=== PATIENT | female | born 1980 | race American Indian/Alaskan Native ===

== ENCOUNTER 2017-03-04 05:40 | Inpatient (IN) | payer OTHER ==
[2017-03-04] MEDS ORDERED: ELECTROLYTE-148 SOLN 1,000 ML IV SCH (06:00)
[2017-03-04 06:52] VITALS: BMI 27.1
[2017-03-04 07:52] LABS: BASO % 0.5 % (0-2.0); HEMOGLOBIN 12.1 GM/dL (10.7-15.3); RBC 4.68 M/mm3 (3.60-5.2); WHITE BLOOD COUNT 9.1 K/mm3 (4.0-10.0)
[2017-03-04 07:54] LABS: EOS % 1.3 % (0-4.5); HEMATOCRIT 37.9 % (32.4-45.2); LYMPH % 20.1 % (8-40); MCH 25.9 pg (25.7-33.7); MEAN CELL VOLUME 81.1 fl (80-96); MEAN PLT VOLUME 9.9 fl (7.5-11.1); MONO % 5.2 % (3.8-10.2); NEUT % 72.9 % (42.8-82.8); PLATELET COUNT 250 K/MM3 (134-434)
[2017-03-04 08:04] LABS: INR 0.87 (0.82-1.09); PROTHROMBIN TIME (PATIENT) 9.8 SEC (9.98-11.88)
[2017-03-04] MEDS ORDERED: DEXTROSE 5%-LACTATED RINGERS 1,000 ML IV SCH (08:45)
[2017-03-04 08:46] LABS: ANION GAP 12 (8-16); BLOOD UREA NITROGEN 10 mg/dL (7-18); CALCIUM 8.6 mg/dL (8.5-10.1); CHLORIDE 104 mmol/L (98-107); CO2 20 mmol/L (21-32); CREATININE 0.5 mg/dL (0.55-1.02); GLUCOSE,RANDOM 81 mg/dL (74-106); SODIUM 136 mmol/L (136-145)
--- NOTE | 2017-03-04 08:48 | HP ---
Past Medical History - Admission Chief Complaint: Rupture of membrane History of Present Illness: 36 yo @ 38.5 weeks gestation, EDC 03/13/17 presents c/o rupture of membrane. She c/o mild contractions pain. Upon admission she was 4cm dilated. History Source: Patient Limitations to Obtaining History: No Limitations - Past Medical History ...: 2 ...Para: 0 ...Term: 0 ...: 0 ...Spon : 0 ...Induced : 1 ...Multiple Gestation: 0 ...LMP: 06/10/16 ...EDC by Sono: 03/13/17 - Past Surgical History Past Surgical History: Yes: None Hx Myomectomy: No Hx Transabdominal Cerclage: No - Smoking History Smoking history: Never smoked Have you smoked in the past 12 months: No - Alcohol/Substance Use Hx Alcohol Use: No History of Substance Use: reports: None - Social History Usual Living Arrangement: Yes: With Spouse History of Recent Travel: No Home Medications - Allergies Allergies/Adverse Reactions: Allergies Allergy/AdvReac Type Severity Reaction Status Date / Time No Known Drug Allergies Allergy Verified 03/04/17 06:28 - Home Medications Home Medications: Ambulatory Orders Vit/Iron Fum/Folic AC [ Tablet] 1 tab PO DAILY 03/04/17 Family Disease History - Family Disease History Family History: Unremarkable Review of Systems - Review of Systems Constitutional: reports: No Symptoms Eyes: reports: No Symptoms HENT: reports: No Symptoms Neck: reports: No Symptoms Cardiovascular: reports: No Symptoms Respiratory: reports: No Symptoms Gastrointestinal: reports: No Symptoms Genitourinary: reports: No Symptoms, Other (Leakage of amniotic fluid) Breasts: reports: No Symptoms Reported Musculoskeletal: reports: No Symptoms Integumentary: reports: No Symptoms Neurological: reports: No Symptoms Endocrine: reports: No Symptoms Hematology/Lymphatic: reports: No Symptoms Psychiatric: reports: No Symptoms Pain Intensity: 3 Physical Exam - Maternity Vital Signs: Vital Signs Temperature 97.7 F 03/04/17 08:00 Pulse Rate 74 03/04/17 08:00 Respiratory Rate 18 03/04/17 08:00 Blood Pressure 120/77 03/04/17 08:00 O2 Sat by Pulse Oximetry (%) Constitutional: Yes: Well Nourished Eyes: Yes: Conjunctiva Clear HENT: Yes: Atraumatic Neck: Yes: Supple Cardiovascular: Yes: Regular Rate and Rhythm Lungs: Clear to auscultation Breast(s): Yes: WNL - Abdominal Exam/OB Number of Fetuses: Single Presentation: Vertex - Vaginal Exam/OB Dilatation (cm): 4 Effacement (%): 80 Amniotic Membrane Status: Ruptured Amniotic Fluid: Yes: Clear Meconium: Light Station: -2 - Physical Exam Musculoskeletal: Yes: WNL Extremities: Yes: WNL ...Motor Strength: WNL Psychiatric: Yes: Alert, Oriented - Labs Lab Results: CBC, BMP 03/04/17 06:50 Problem List - Problems (1) Spontaneous rupture of membranes Code(s): [id number] - Assessment/Plan IUP @ 38 weeks SROM Admit to L&D Analgesia as needed Pitocin augmentation
[2017-03-04] MEDS ORDERED: OXYTOCIN 15 UNITS/ LR 250 ML 15 UNIT/250 ML INFUS.BAG IVPB SCH (09:00)
--- NOTE | 2017-03-04 10:47 | PN ---
Progress Note, Labor Vaginal Exam #1 Labor Exam Date: 03/11/17 Labor Exam Time: 10:25 Heart Rate (range): 130 Dilatation: 3-4 Effacement (%): 65 Amniotic Membrane Status: Ruptured Presentation: Vertex/Position Station: -2 (-3/-2) Remarks: FHR cat-1 UC q3-5 min irregular, mild Pitocin 1 ml/hr, augmentation started at 9.10 AM Patient admitted by Dr Francisco , labor management transferred to Ob secretary receptionist Dr Jolly 36 Yrs ( AMA) , 38.5/7 weeks, s/o SROM since 4.30 AM 03/03/17 . [facility] reviewed . Genetic counselling & NIPT , Anatomy sono done at [facility] , [place] . Pap Ascus , Hpv neg, Gbs neg , PPD pos , h/o Anemia in mid trimester, corrected by po Iron & pnv Selected Entries 03/04/17 03/04/17 08:00 09:00 Temperature 97.7 F Pulse Rate 74 72 Blood Pressure 120/77 114/80 Laboratory Tests 03/04/17 03/04/17 03/04/17 06:50 06:50 06:50 WBC 9.1 Hgb 12.1 Hct 37.9 Plt Count 250 Neutrophils % 72.9 Lymphocytes % 20.1 PT with INR 9.80 L INR 0.87 PTT (Actin FS) Sodium 136 Potassium 4.0 Chloride 104 Carbon Dioxide 20 L BUN 10 Creatinine 0.5 L Random Glucose 81 Blood Type Antibody Screen 03/04/17 03/04/17 03/04/17 06:50 06:50 06:50 WBC Hgb Hct Plt Count Neutrophils % Lymphocytes % PT with INR INR PTT (Actin FS) 28.4 Sodium Potassium Chloride Carbon Dioxide BUN Creatinine Random Glucose Blood Type B POSITIVE Antibody Screen Negative Vaginal Exam #2 Labor Exam Date: 03/04/17 Labor Exam Time: 12:45 Heart Rate (range): 130 Dilatation: 6 Effacement (%): 90 Amniotic Membrane Status: Ruptured Presentation: Vertex/Position Station: +1 Remarks: FHR cat-1 UC 3-4 min pitocin 4ml//hr epidural analgesia is given at 12.00 Noon Temp 98.7 Selected Entries 03/04/17 12:30 Pulse Rate 97 H Blood Pressure 115/77 Vaginal Exam #3 Labor Exam Date: 03/04/17 Labor Exam Time: 13:45 Heart Rate (range): 120-130 Dilatation: 8 Effacement (%): 90 Amniotic Membrane Status: Ruptured Presentation: Vertex/Position Station: +2 (caput, ant lip edematous) Remarks: fhr cat-1 uc 3-4 min pt c/o pressure pain epidural top off given Vaginal Exam #4 Labor Exam Date: 03/04/17 Labor Exam Time: 16:00 Heart Rate (range): 120-110 Dilatation: 10 Effacement (%): 100 Amniotic Membrane Status: Ruptured Station: +2 (+2/+3) Remarks: FHR cat-2 uc 2-3 min pt pushing
[2017-03-04] MEDS ORDERED: FENTANYL/BUPIVACAINE/NS/PF - PCEA - 50 ML DISP.SYRIN EP ONE ×2 (11:47→15:01)
[2017-03-04] MEDS ORDERED: NALOXONE HCL 0.4 MG/ML VIAL IVPUSH PRN (12:20)
[2017-03-04] MEDS ORDERED: FENTANYL/BUPIVACAINE/NS/PF - PCEA - 50 ML DISP.SYRIN EP SCH ×2 (12:30→12:44)
[2017-03-04] MEDS ORDERED: OXYTOCIN 20 UNITS in 0.9% NS 20 UNIT/1,000 ML INFUS.BAG IV ONE (15:49)
[2017-03-04] MEDS ORDERED: LIDOCAINE HCL 1% PRESERVATIVE FREE - 30ML VIAL ONE (15:53)
[2017-03-04] MEDS ORDERED: BENZOCAINE 20% 57 GM BOTTLE TP PRN (16:58)
[2017-03-04] MEDS ORDERED: WITCH HAZEL 50% (TUCKS) 40 PAD/JAR PAD TP PRN (16:58)
[2017-03-04] MEDS ORDERED: BISACODYL 10 MG SUPP.RECT RC PRN (16:58)
[2017-03-04] MEDS ORDERED: oxyCODONE HCL 5 MG TABLET PO PRN (16:58)
[2017-03-04] MEDS ORDERED: METHYLERGONOVINE MALEATE 0.2 MG/1 ML AMP IM PRN (16:58)
[2017-03-04] MEDS ORDERED: BENZOCAINE 28 GM HEMORRHOIDAL OINTMENT TP PRN (16:58)
[2017-03-04] MEDS ORDERED: ACETAMINOPHEN 325 MG TABLET (FP) PO PRN (16:58)
--- NOTE | 2017-03-04 17:10 | PN ---
Delivery - Delivery Vaginal Delivery: No Problems, Spontaneous Type of Anesthesia: Local, Epidural Episiotomy/Laceration: Midline (episiotomy sutured in layers with chr catgut #2/ 0 under 1% lidocaine infiltration . pr exam mucosa & sphincter intact) EBL (cc): 350 Delivery, Single - Stages of Labor Date 1st Stage Initiatied: 03/04/17 Time 1st Stage Initiated: 11:30 Date 2nd Stage Initiated: 03/04/17 Time 2nd Stage Initiated: 16:00 Date of Delivery: 03/04/17 Time of Delivery: 16:22 Date Placenta Delivered: 03/04/17 Time Placenta Delivered: 16:25 Placenta: Yes: Spontaneous, Uterine Exploration - Condition of Biological Science Technician/Thermal Technician Present: No Gender: Male Weight: 7 lb 4 oz Position: Left, OA Total Hours ROM (Hrs/Mins): 11 hrs 55min - 1 Minute Total Score: 9 5 Minutes Total Score: 9 - [place] Feeding Plan Initial Plan: Elected not to breastfeed exclusively throughout hospitalization Remarks - Remarks Remarks: 36 yrs ( AMA), , 38.5 weeks SROM , [facility] in [facility] GBS neg Pitocin augmentation was given . Intrapartum course was normal
[2017-03-04] MEDS ORDERED: OXYTOCIN 20 UNITS in 0.9% NS 20 UNIT/1,000 ML INFUS.BAG IV SCH (17:15)
[2017-03-04] MEDS: FERROUS SO4 325 MG TABLET (FP) PO SCH (17:34)
[2017-03-05 07:20] LABS: BASO % 0.2 % (0-2.0); EOS % 0.5 % (0-4.5); HEMATOCRIT 30.5 % (32.4-45.2); HEMOGLOBIN 9.7 GM/dL (10.7-15.3); LYMPH % 13.3 % (8-40); MCH 25.8 pg (25.7-33.7); MCHC 31.9 g/dl (32.0-36.0); MEAN CELL VOLUME 80.9 fl (80-96); MEAN PLT VOLUME 9.5 fl (7.5-11.1); MONO % 4.8 % (3.8-10.2); NEUT % 81.2 % (42.8-82.8); PLATELET COUNT 192 K/MM3 (134-434); RBC 3.77 M/mm3 (3.60-5.2); RDW 13.5 % (11.6-15.6); WHITE BLOOD COUNT 12.6 K/mm3 (4.0-10.0)
[2017-03-05] MEDS: FERROUS SO4 325 MG TABLET (FP) PO SCH ×2 (07:43→17:15)
[2017-03-05] MEDS: IBUPROFEN 600 MG TABLET (FP) PO PRN (07:44)
--- NOTE | 2017-03-05 07:58 | PN ---
Progress Note (short form) - Note Progress Note: ppd 1 doing well, no c/o , voids ok CBC, BMP 03/05/17 06:45 03/04/17 06:50 Last Vital Signs Temp Pulse Resp BP Pulse Ox 98.6 F 88 20 95/59 98 03/05/17 06:00 03/05/17 06:00 03/05/17 06:00 03/05/17 06:00 03/04/17 16:00 abdomen soft, uterus firm, non tender lochia mild no calf tenderness plan ambualte,, iron, vit
[2017-03-05] MEDS: PRENATAL VITAMINS W/ FOLIC ACID TABLET (FP) PO SCH (09:28)
[2017-03-05] MEDS ORDERED: SENNOSIDES/DOCUSATE COMBO (SENNA PLUS) TABLET (UD) PO PRN (22:00)
[2017-03-05 23:50] VITALS: TEMP 97.8
[2017-03-06] MEDS: IBUPROFEN 600 MG TABLET (FP) PO PRN (01:33)
[2017-03-06] MEDS: FERROUS SO4 325 MG TABLET (FP) PO SCH (08:03)
--- NOTE | 2017-03-06 08:41 | PN ---
Progress Note (short form) - Note Progress Note: ppd 2 ,no c/o no excess vaginal bleeding , voids ok CBC, BMP 03/05/17 06:45 03/04/17 06:50 Last Vital Signs Temp Pulse Resp BP Pulse Ox 97.8 F 73 18 103/70 98 03/05/17 22:00 03/05/17 22:00 03/05/17 22:00 03/05/17 22:00 03/04/17 16:00 uterus firm, non tender perineum clean no calf tenderness plan D?C home, rt 4 weeks
[2017-03-06] MEDS ORDERED: DIPHTH,PERTUSS(ACELL),TET 0.5 ML DISP.SYRIN IM ONE (08:45)
[2017-03-06] MEDS: PRENATAL VITAMINS W/ FOLIC ACID TABLET (FP) PO SCH (09:55)
[2017-03-06 10:34] VITALS: BP 98/66; PULSE 69
--- NOTE | 2017-03-09 18:34 | DS ---
Physical Exam-PAPER CAP MACHINE OPERATOR Vital Signs: Vital Signs Temperature 97.8 F 03/06/17 09:00 Pulse Rate 69 03/06/17 09:00 Respiratory Rate 20 03/06/17 09:00 Blood Pressure 98/66 03/06/17 09:00 O2 Sat by Pulse Oximetry (%) 98 03/04/17 16:00 Constitutional: Yes: Well Nourished, Pallor HENT: Yes: WNL Neck: Yes: WNL Cardiovascular: Yes: WNL Respiratory: Yes: WNL Gastrointestinal: Yes: WNL ...Rectal Exam: Yes: WNL Renal/: Yes: WNL ....Post : Yes: Uterus firm, Uterus non-tender, Moderate lochia rubra ( episiotomy healing. perineal soreness felt) Breast(s): Yes: WNL (bf) Musculoskeletal: Yes: WNL Extremities: Yes: WNL. No: Calf Tenderness Edema: Yes Edema: LLE: 1+, RLE: 1+ Neurological: Yes: WNL, Alert, Oriented ...Motor Strength: WNL Psychiatric: Yes: WNL Labs: CBC, BMP 03/05/17 06:45 03/04/17 06:50 Delivery - Delivery Vaginal Delivery: No Problems, Spontaneous Type of Anesthesia: Local, Epidural Episiotomy/Laceration: Midline (episiotomy sutured in layers with chr catgut #2/ 0 under 1% lidocaine infiltration . pr exam mucosa & sphincter intact) EBL (cc): 350 Delivery, Single - Stages of Labor Date 1st Stage Initiatied: 03/04/17 Time 1st Stage Initiated: 11:30 Date 2nd Stage Initiated: 03/04/17 Time 2nd Stage Initiated: 16:00 Date of Delivery: 03/04/17 Time of Delivery: 16:22 Time Placenta Delivered: 16:25 Placenta: Yes: Spontaneous, Uterine Exploration - Condition of Instrumentation Chemist/Continuous Pillowcase Cutter Present: No Infant Gender: Male Weight: 7 lb 4 oz Position: Left, OA Total Hours ROM (Hrs/Mins): 11 hrs 55min - 1 Minute Total Score: 9 5 Minutes Total Score: 9 - [place] Feeding Plan Initial Plan: Elected not to breastfeed exclusively throughout hospitalization Remarks - Remarks Remarks: 36 yrs ( AMA), , 38.5 weeks SROM , [facility] GBS neg Pitocin augmentation was given . Intrapartum course was normal . post course uneventful anemia counselled discharge on 03/06/2107 Discharge Summary Reason For Visit: LABOR ADMIT Condition: Good - Instructions Diet, Activity, Other Instructions: regular diet, no intercourse ,follow up [facility] care 4 weeks Referrals: Salena Jolly MD [Staff Physician] - Disposition: HOME - Home Medications Comprehensive Discharge Medication List: Ambulatory Orders Vit/Iron Fum/Folic AC [ Tablet] 1 tab PO DAILY 03/04/17 Ibuprofen [Motrin -] 600 mg PO QID #28 tablet 03/06/17
== END 2017-03-06 12:00 | disposition home or self-care (01) | DRG 560 ==
LOC: JLDR 05:40 → J3W 20:07
PROVIDERS: ADMIT Obstetrics & Gynecology; ATTEND Obstetrics & Gynecology
PROC: 10E0XZZ Delivery of Products of Conception, External Approach (ICD-10-PCS; principal; 2017-03-04)
PROC: 0W8NXZZ Division of Female Perineum, External Approach (ICD-10-PCS; 2017-03-04)
DX: O80 Encounter for full-term uncomplicated delivery (principal); Z3A.38 38 weeks gestation of pregnancy; Z37.0 Single live birth
CPT/HCPCS: 36415; 59409; 71046-TC; 80048; 85025; 85610; 85730; 86593; 86850; 86900; 86901; 90715